=== PATIENT | female | born 1950 | race Caucasian/White ===

== ENCOUNTER → 2018-06-16 | Outpatient (REF) | payer MEDICARE ==
[2018-06-18 08:57] LABS: LDL DIRECT 180 mg/dL (0-99)
== END ==
LOC: M LAB REF 17:09
DX: E78.00 Pure hypercholesterolemia, unspecified (principal)
CPT/HCPCS: 83721

== ENCOUNTER → 2018-06-22 | Outpatient (CLI) | payer MEDICARE | LOC: M WHC 12:44 | DX: Z12.31 Encounter for screening mammogram for malignant neoplasm of breast (principal) | CPT/HCPCS: 77067 ==

== ENCOUNTER → 2019-10-19 | Outpatient (CLI) | payer MEDICARE ==
--- NOTE | 2019-10-19 14:09 | REPMRS ---
Patient History Family history of breast cancer under age 50 in maternal cousin, breast cancer under age 50 in maternal cousin, breast cancer in maternal aunt, breast cancer in maternal aunt, breast cancer in maternal aunt, breast cancer in maternal aunt. Digital Woman Screen Mammo: October 19, 2019 - Exam #: [id number] Bilateral CC and MLO view(s) were taken. Technologist: Priyanka Alexander, Technologist Prior study comparison: June 22, 2018, bilateral digital woman screen mammo performed at [facility]. June 19, 2017, digital woman screen mammo performed at [facility]. May 15, 2016, digital woman screen mammo performed at [facility]. FINDINGS: There are scattered fibroglandular densities. There has been no change in the appearance of the mammogram from the prior studies. There is a mild amount of scattered fibroglandular density which is fairly symmetric. There is no interval development of dominant mass, architectural distortion, or grouped microcalcification suggestive of malignancy. 3-D tomosynthesis shows no additional findings. Assessment: BI-RADS/ACR category 1 mammogram. Negative Mammogram. Recommendation Routine screening mammogram of both breasts in 1 year (for women over age 40). This patient's Lifetime Breast Cancer Risk is estimated at 5.5 %. This mammogram was interpreted with the aid of an FDA-approved computer-aided dectection system. Electronically Signed By: Mauri Gates MD 10/19/19 [id number]
== END ==
LOC: M WHC 12:32
PROVIDERS: ATTEND Nurse Practitioner Adult Health
DX: Z12.31 Encounter for screening mammogram for malignant neoplasm of breast (principal)

== ENCOUNTER → 2020-02-02 | Outpatient (CLI) | payer MEDICARE ==
[~2020-02-02] MED LIST: AMIT10TA PO; AZEL1SPR3 NARES; CLOB0.057 TOP; CYCL5TAB PO; FLUTISP; HYDR-3713 PO; METF-838 PO; METR1GEL4 EX; MONT10TA4 PO; OLME20TA2 PO; PRAV20TA2 PO; PROAAER10 INH; TRIA1CR80 TOP; VITAD1000T PO
--- NOTE | 2020-02-02 19:03 | ECGEPIP ---
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 Clincal correlation advised Electronically Signed on 02-02-2020 19:03:13 EDT by Abe Obregon
== END ==
LOC: M EKG 13:05
PROVIDERS: ATTEND Anesthesiology
DX: Z01.818 Encounter for other preprocedural examination (principal); R03.0 Elevated blood-pressure reading, without diagnosis of hypertension; E78.00 Pure hypercholesterolemia, unspecified

== ENCOUNTER → 2020-02-03 | Outpatient (CLI) | payer MEDICARE | LOC: M LABSMTC 11:16 | PROVIDERS: ATTEND Anesthesiology | DX: Z01.818 Encounter for other preprocedural examination (principal); Z11.59 Encounter for screening for other viral diseases | CPT/HCPCS: C9803; U0003 ==

== ENCOUNTER 2020-02-06 06:18 | Day surgery (SDC) | payer MEDICARE ==
[~2020-02-06] VITALS: Ht 162.6 cm; Wt 97.5 kg
[~2020-02-06 06:18] MED LIST changes: +LIDOCAINE 1% MDV 20ML VIAL SQ PRN
[2020-02-06] MEDS ORDERED: MIDAZOLAM INJ 2MG/2ML VIAL (J2250 PER 1MG) As Ordered ONE (06:44)
[2020-02-06] MEDS ORDERED: fentaNYL 100 MCG/2 ML INJECTION (J3010) As Ordered ONE (06:44)
[2020-02-06] MEDS ORDERED: propofoL 200 MG/20 ML VIAL As Ordered ONE ×2 (06:45→07:59)
[2020-02-06] MEDS ORDERED: LIDOCAINE 2% 100MG/5ML SDV (FOR ANES.) As Ordered ONE (06:45)
[2020-02-06] MEDS ORDERED: LR 1,000 ML IV ONE (07:00)
[2020-02-06] MEDS ORDERED: LIDOCAINE W/EPINEPHRINE 1% 20ML VIAL As Ordered ONE (07:17)
[2020-02-06] MEDS ORDERED: LR 1,000 ML IV SCH (08:30)
[2020-02-06] MEDS ORDERED: fentaNYL 100 MCG/2 ML INJECTION (J3010) IV PRN (08:30)
[2020-02-06] MEDS ORDERED: PERCOCET 5MG/325MG TAB PO PRN (08:30)
[2020-02-06 08:35] VITALS: BP 155/68
--- NOTE | 2020-02-09 14:29 | RO ---
DATE OF PROCEDURE: 02/06/2020 PREOPERATIVE DIAGNOSIS: Back lipoma. POSTOPERATIVE DIAGNOSIS: Back lipoma. PROCEDURE: Excision of back lipoma measuring 3 x 5 cm SURGEON: Dr. Shantanu Correa RISK SPECIALIST: None. ANESTHESIA: IV sedation with 15 mL of 1% Xylocaine with epinephrine local. COMPLICATIONS: None. INDICATIONS FOR PROCEDURE: The patient is a 69-year-old female with a back lipoma on her upper middle back that was very tender to palpation. Recommendation was to proceed with resection in the OR due to the large size. Risks and benefits of the procedure not limited to, but including bleeding, infection, seroma formation, damage to surrounding structures, need for further surgery external rotation in extension discussed in detail with the patient. Informed consent was obtained and the procedure was planned. PROCEDURE: The patient was brought back to operating room three. After sufficient sedation, the back was sterilely prepped and draped with Betadine. Next, we did a time out. Following that, a local was injected in the skin and subcutaneous tissue overlying the center of the palpable lipoma. Next, using 15 blade scalpel the incision was created along the center. Dissection was then created circumferentially around the lipoma using a combination of blunt and sharp dissection and using cautery and Metzenbaum scissors. Once the lipoma was completely dissected free and removed, cautery was used to help control a couple of small bleeding spots just above the muscle. The skin was then brought back together with interrupted #3-0 nylon sutures. Once that was completed, the area was cleaned, dried, was covered with 4x4s and tape, thus ending the procedure.
== END 2020-02-06 08:55 | disposition home or self-care (01) ==
LOC: M SDC 06:18
PROVIDERS: ATTEND Surgery
DX: D17.1 Benign lipomatous neoplasm of skin and subcutaneous tissue of trunk (principal); I10 Essential (primary) hypertension; E78.49 Other hyperlipidemia; E11.9 Type 2 diabetes mellitus without complications; J45.909 Unspecified asthma, uncomplicated; Z79.84 Long term (current) use of oral hypoglycemic drugs; Z79.899 Other long term (current) drug therapy; Z79.51 Long term (current) use of inhaled steroids; F41.9 Anxiety disorder, unspecified; F32.9 Major depressive disorder, single episode, unspecified
CPT/HCPCS: 11406; 88304; J2250; J3010

== ENCOUNTER → 2021-06-14 | Outpatient (CLI) | payer MEDICARE ==
[~2021-06-14] MED LIST changes: -AMIT10TA PO; +AMIT10TA7 PO; +D31000TA2 PO; -LIDOCAINE 1% MDV 20ML VIAL SQ PRN; +MONT10TA10 PO; -MONT10TA4 PO; -VITAD1000T PO
--- NOTE | 2021-06-14 15:14 | REPMRS ---
Patient History The patient states she has not had a clinical breast exam in over a year. Patient is postmenopausal. Family history of breast cancer under age 50 in maternal cousin, breast cancer under age 50 in maternal cousin, breast cancer in maternal aunt, breast cancer in maternal aunt, breast cancer in maternal aunt, breast cancer in maternal aunt. No Hormone Replacement Therapy Tomosynthesis is performed. [place] breast density is c. [facility] lifetime risk of breast cancer 4.8%. Patient states no breast complaints today. Patient has signed MRS History Sheet. Digital Woman Screen Mammo: June 14, 2021 - Exam #: [id number] Bilateral CC and MLO view(s) were taken. Technologist: Madeleine Adame Room Cleaner Prior study comparison: October 19, 2019, bilateral digital woman screen mammo performed at [facility]. June 22, 2018, bilateral digital woman screen mammo performed at [facility]. FINDINGS: The breast tissue is heterogeneously dense. This may lower the sensitivity of mammography. There has been no change in the appearance of the mammogram from the prior studies. There is a moderate amount of residual fibroglandular tissue which is fairly symmetric. There is no interval development of dominant mass, areas of architectural distortion, or clustered microcalcification typical of malignancy. Assessment: BI-RADS/ACR category 1 mammogram. Negative Mammogram. Recommendation Routine screening mammogram in 1 year (for women over age 40). This mammogram was interpreted with the aid of an FDA-approved computer-aided dectection system. Electronically Signed By: Shantanu Whipple MD 06/14/21 [id number]
== END ==
LOC: M WHC 13:21
PROVIDERS: ATTEND Nurse Practitioner Adult Health
DX: Z12.31 Encounter for screening mammogram for malignant neoplasm of breast (principal)

== ENCOUNTER → 2021-07-08 | Outpatient (CLI) | payer MEDICARE ==
--- NOTE | 2021-07-08 17:06 | REP ---
INDICATION: DENSE BREAST U/S. COMPARISON: Mammogram 06/14/2021. TECHNIQUE: Real-time sonographic evaluation of entire bilateral breasts performed. FINDINGS: In the right breast at 9 o'clock there is a simple benign cyst 4 mm in diameter, approximately 7-8 cm from the nipple. Elastography interrogation demonstrates average KP a value 8.47. There is no other evidence of cystic or solid nodule in remaining right breast. There is no cystic or solid nodule seen in the left breast. IMPRESSION: BIRADS/ACR category 2, benign. Simple benign cyst 9 o'clock right breast 4 mm. No other evidence of cystic or solid nodule. RECOMMENDATION: Recommend repeat screening exam in 1 year. <Electronically signed by Shantanu Whipple > 07/08/21 [id number]
== END ==
LOC: M WHC 11:17
PROVIDERS: ATTEND Nurse Practitioner Adult Health
DX: N60.02 Solitary cyst of left breast (principal); R92.2 Inconclusive mammogram

== ENCOUNTER → 2022-06-23 | Outpatient (CLI) | payer MEDICARE ==
[~2022-06-23] MED LIST changes: -D31000TA2 PO; -MONT10TA10 PO; +MONT10TA97 PO; +VITA100093 PO
== END ==
LOC: M WHC 14:49
PROVIDERS: ATTEND Nurse Practitioner Adult Health
DX: Z12.31 Encounter for screening mammogram for malignant neoplasm of breast (principal)

== ENCOUNTER 2023-03-17 11:50 | Emergency (ER) | payer MEDICARE, OTHER ==
[~2023-03-17] VITALS: Ht 162.6 cm; Wt 95.4 kg
[~2023-03-17 11:50] MED LIST changes: +FLUT50SP17; -FLUTISP
[2023-03-17 11:51] VITALS: TEMP 97.6
[2023-03-17] MEDS ORDERED: CLIN150C17 PO (12:10)
[2023-03-17 14:43] VITALS: BP 131/63; O2SAT 96
== END 2023-03-17 14:50 | disposition home or self-care (01) ==
LOC: M ED 11:50
DX: S40.811A Abrasion of right upper arm, initial encounter (principal); W55.01XA Bitten by cat, initial encounter; I10 Essential (primary) hypertension; E11.9 Type 2 diabetes mellitus without complications; Z79.4 Long term (current) use of insulin; Y92.009 Unspecified place in unspecified non-institutional (private) residence as the place of occurrence of the external cause; Z79.52 Long term (current) use of systemic steroids; Z79.899 Other long term (current) drug therapy

== ENCOUNTER 2023-04-28 23:52 | Emergency (ER) | payer MEDICARE, OTHER ==
[~2023-04-28] VITALS: Ht 152.4 cm; Wt 96.1 kg
[~2023-04-28 23:52] MED LIST changes: +CLIN150C17 PO
[2023-04-29] MEDS ORDERED: ORAC40CA (00:04)
[2023-04-29 02:01] VITALS: BP 158/71; TEMP 97.1; O2SAT 97
== END 2023-04-29 02:09 | disposition home or self-care (01) ==
LOC: M ED 23:52
DX: S40.861A Insect bite (nonvenomous) of right upper arm, initial encounter (principal); M51.36 Other intervertebral disc degeneration, lumbar region; J45.909 Unspecified asthma, uncomplicated; I10 Essential (primary) hypertension; E78.5 Hyperlipidemia, unspecified; E11.9 Type 2 diabetes mellitus without complications; Z88.8 Allergy status to other drugs, medicaments and biological substances; Z79.52 Long term (current) use of systemic steroids; Z79.4 Long term (current) use of insulin; Z79.899 Other long term (current) drug therapy

== ENCOUNTER → 2023-06-24 | Outpatient (CLI) | payer MEDICARE, MEDICAID ==
[~2023-06-24] MED LIST changes: +ORAC40CA
== END ==
LOC: M WHC 13:49
PROVIDERS: ATTEND Nurse Practitioner Adult Health
DX: Z12.31 Encounter for screening mammogram for malignant neoplasm of breast (principal)

== ENCOUNTER → 2023-10-23 | Outpatient (REF) | payer MEDICARE, MEDICAID ==
[~2023-10-23] MED LIST changes: -FLUT50SP17; +FLUTISP; -OLME20TA2 PO; +OLME20TA50 PO
[2023-10-23 16:52] LABS: APPEARANCE, URINE CLEAR (CLEAR); BACTERIA, URINE AUTO NEGATIVE (NEGATIVE); BILIRUBIN, URINE AUTO NEGATIVE (NEGATIVE); BLOOD, URINE BLOOD NEGATIVE (NEGATIVE); COLOR, URINE STRAW (YELLOW); GLUCOSE, URINE (UA) AUTO NEGATIVE (NEGATIVE); KETONE, URINE AUTO NEGATIVE (NEGATIVE); LEUKOCYTE ESTERASE, URINE AUTO 2+ (NEGATIVE); NITRITE, URINE AUTO NEGATIVE (NEGATIVE); PROTEIN, URINE AUTO NEGATIVE (NEGATIVE); RBC, URINE AUTO 1 /HPF (0-3); SPECIFIC GRAVITY URINE AUTO 1.002 (1.002-1.035); SQUAMOUS EPITHELIAL CELL UR AU 1 /HPF (0-6); UROBILINOGEN, URINE AUTO 0.2 mg/dL (0.0-2.0); WBC, URINE AUTO 9 /HPF (0-3)
== END ==
LOC: M LAB REF 16:11
PROVIDERS: ATTEND Physician Assistant Medical
DX: N39.0 Urinary tract infection, site not specified (principal)

== ENCOUNTER 2023-11-06 15:37 | Emergency (ER) | payer MEDICARE, MEDICAID ==
[~2023-11-06] VITALS: Ht 162.6 cm; Wt 87.9 kg
[~2023-11-06 15:37] MED LIST changes: +METH-1164 PO
[2023-11-06] MEDS: KETOROLAC 60MG 2ML VIAL IM ONE (19:36)
[2023-11-06 19:51] VITALS: BP 160/75; TEMP 97.5; O2SAT 97
== END 2023-11-06 19:55 | disposition home or self-care (01) ==
LOC: M ED 15:37
DX: M54.50 Low back pain, unspecified (principal); W19.XXXA Unspecified fall, initial encounter; E11.9 Type 2 diabetes mellitus without complications; I10 Essential (primary) hypertension; J45.909 Unspecified asthma, uncomplicated; M54.30 Sciatica, unspecified side; Z88.1 Allergy status to other antibiotic agents; Z88.8 Allergy status to other drugs, medicaments and biological substances; Z79.52 Long term (current) use of systemic steroids; Z79.4 Long term (current) use of insulin; Z79.84 Long term (current) use of oral hypoglycemic drugs; Z79.899 Other long term (current) drug therapy
CPT/HCPCS: 96372; 99283; J1885

== ENCOUNTER → 2023-11-23 | Outpatient (CLI) | payer MEDICARE, MEDICAID | LOC: M RAD 09:32 | PROVIDERS: ATTEND Nurse Practitioner Adult Health | DX: D48.5 Neoplasm of uncertain behavior of skin (principal) ==

== ENCOUNTER → 2023-12-08 | Outpatient (CLI) | payer MEDICARE, MEDICAID ==
[~2023-12-08] MED LIST changes: +LIDOCAINE 2% 100MG/5ML SDV (FOR ANES.) ONE; +MIDAZOLAM INJ 2MG/2ML VIAL As Ordered ONE; +PROHANCE 279.3MG/ML 15ML VIAL As Ordered ONE; +PROHANCE 279.3MG/ML 5ML VIAL As Ordered ONE; +propofoL 200 MG/20 ML VIAL ONE
[2023-12-08 11:50] VITALS: TEMP 97.4
[2023-12-08 13:25] VITALS: BP 125/74; O2SAT 98
== END ==
LOC: M RADPRO 11:21
PROVIDERS: ATTEND Nurse Practitioner Adult Health
DX: D43.0 Neoplasm of uncertain behavior of brain, supratentorial (principal)
CPT/HCPCS: 70553; A9576; J2250

== ENCOUNTER → 2024-03-29 | Outpatient (CLI) | payer MEDICARE, MEDICAID ==
[~2024-03-29] MED LIST changes: -LIDOCAINE 2% 100MG/5ML SDV (FOR ANES.) ONE; -MIDAZOLAM INJ 2MG/2ML VIAL As Ordered ONE; -PROHANCE 279.3MG/ML 15ML VIAL As Ordered ONE; -PROHANCE 279.3MG/ML 5ML VIAL As Ordered ONE; -propofoL 200 MG/20 ML VIAL ONE
[2024-03-29 08:40] VITALS: TEMP 97.5
[2024-03-29 10:25] VITALS: BP 151/68; O2SAT 96
== END ==
LOC: M RADPRO 08:37
PROVIDERS: ATTEND Nurse Practitioner Adult Health
DX: M54.12 Radiculopathy, cervical region (principal)

== ENCOUNTER → 2024-06-15 | Outpatient (REF) | payer OTHER, MEDICAID | LOC: M LAB REF 16:56 | PROVIDERS: ATTEND Nurse Practitioner Family | DX: R10.9 Unspecified abdominal pain (principal) ==

== ENCOUNTER → 2024-07-08 | Outpatient (CLI) | payer OTHER, MEDICAID ==
[~2024-07-08] MED LIST changes: -CYCL5TAB PO; +CYCL5TAB4 PO
== END ==
LOC: M WHC 13:16
PROVIDERS: ATTEND Nurse Practitioner Family
DX: Z12.31 Encounter for screening mammogram for malignant neoplasm of breast (principal)

== ENCOUNTER → 2024-07-20 | Outpatient (CLI) | payer OTHER, MEDICAID | LOC: M RAD 09:06 | PROVIDERS: ATTEND Nurse Practitioner Family | DX: E04.2 Nontoxic multinodular goiter (principal); R10.11 Right upper quadrant pain ==

== ENCOUNTER → 2024-07-24 | Outpatient (REF) | payer OTHER, MEDICAID ==
[2024-07-24 19:53] LABS: APPEARANCE, URINE CLOUDY (CLEAR); BACTERIA, URINE AUTO 1+ (NEGATIVE); BILIRUBIN, URINE AUTO NEGATIVE (NEGATIVE); BLOOD, URINE BLOOD 1+ (NEGATIVE); COLOR, URINE YELLOW (YELLOW); GLUCOSE, URINE (UA) AUTO NEGATIVE (NEGATIVE); KETONE, URINE AUTO NEGATIVE (NEGATIVE); LEUKOCYTE ESTERASE, URINE AUTO 3+ (NEGATIVE); MUCUS, URINE SMALL (NEGATIVE); NITRITE, URINE AUTO NEGATIVE (NEGATIVE); PROTEIN, URINE AUTO NEGATIVE (NEGATIVE); RBC, URINE AUTO 2 /HPF (0-3); SPECIFIC GRAVITY URINE AUTO 1.004 (1.002-1.035); SQUAMOUS EPITHELIAL CELL UR AU 1 /HPF (0-6); UROBILINOGEN, URINE AUTO 0.2 mg/dL (0.0-2.0); WBC, URINE AUTO TNTC /HPF (0-3)
== END ==
LOC: M LAB REF 19:14
PROVIDERS: ATTEND Physician Assistant Medical
DX: N39.0 Urinary tract infection, site not specified (principal)

== ENCOUNTER 2024-08-08 12:33 | Outpatient (RCR) | payer OTHER, MEDICAID | END 2024-08-30 | LOC: M PT 12:33 | PROVIDERS: ATTEND Nurse Practitioner Family | DX: N39.0 Urinary tract infection, site not specified (principal) ==

== ENCOUNTER → 2024-08-08 | Outpatient (REF) | payer OTHER, MEDICAID ==
[2024-08-08 18:14] LABS: APPEARANCE, URINE HAZY (CLEAR); BACTERIA, URINE AUTO NEGATIVE (NEGATIVE); BILIRUBIN, URINE AUTO NEGATIVE (NEGATIVE); BLOOD, URINE BLOOD NEGATIVE (NEGATIVE); COLOR, URINE YELLOW (YELLOW); GLUCOSE, URINE (UA) AUTO NEGATIVE (NEGATIVE); KETONE, URINE AUTO NEGATIVE (NEGATIVE); LEUKOCYTE ESTERASE, URINE AUTO 2+ (NEGATIVE); NITRITE, URINE AUTO NEGATIVE (NEGATIVE); PROTEIN, URINE AUTO NEGATIVE (NEGATIVE); RBC, URINE AUTO 2 /HPF (0-3); SPECIFIC GRAVITY URINE AUTO 1.012 (1.002-1.035); SQUAMOUS EPITHELIAL CELL UR AU 6 /HPF (0-6); UROBILINOGEN, URINE AUTO 0.2 mg/dL (0.0-2.0); WBC, URINE AUTO 9 /HPF (0-3)
== END ==
LOC: M LAB REF 16:40
PROVIDERS: ATTEND Physician Assistant Medical
DX: N39.0 Urinary tract infection, site not specified (principal)

== ENCOUNTER → 2024-08-16 | Outpatient (CLI) | payer OTHER, MEDICAID ==
[~2024-08-16] MED LIST changes: +ISOVUE-370 76% 100ML VIAL As Ordered ONE
== END ==
LOC: M RAD 14:24
PROVIDERS: ATTEND Nurse Practitioner Family
DX: C25.0 Malignant neoplasm of head of pancreas (principal); K44.9 Diaphragmatic hernia without obstruction or gangrene; K76.0 Fatty (change of) liver, not elsewhere classified; J98.11 Atelectasis
CPT/HCPCS: 74177; Q9967

== ENCOUNTER → 2024-08-19 | Outpatient (REF) | payer OTHER, MEDICAID ==
[~2024-08-19] MED LIST changes: -ISOVUE-370 76% 100ML VIAL As Ordered ONE
[2024-08-19 17:08] LABS: BASO # 0.1 10^3/uL (0.0-0.2); BASO % 0.3 % (0.0-1.0); EOS % 0.2 % (0.0-3.0); HEMATOCRIT 36.1 % (36.0-47.0); HEMOGLOBIN 11.9 g/dl (12.0-15.5); LYMPH # 3.9 10^3/uL (1.5-5.0); LYMPH % 23.6 % (24.0-44.0); MEAN CORPUSCULAR HEMOGLOBIN 30.7 pg (27.0-33.0); MONO # 1.5 10^3/uL (0.0-0.8); NEUTROPHILS # 10.9 10^3/uL (1.5-8.5); NEUTROPHILS % 66.2 % (36.0-66.0); PLATELET COUNT, AUTOMATED 239 10^3/uL (150-450); RED BLOOD COUNT 3.88 10^6/uL (4.00-5.40); WHITE BLOOD COUNT 16.5 10^3/uL (4.0-10.0)
== END ==
LOC: M LAB REF 16:24
PROVIDERS: ATTEND Nurse Practitioner Family
DX: I10 Essential (primary) hypertension (principal); E11.69 Type 2 diabetes mellitus with other specified complication; R93.3 Abnormal findings on diagnostic imaging of other parts of digestive tract; D37.8 Neoplasm of uncertain behavior of other specified digestive organs

== ENCOUNTER → 2024-09-13 | Outpatient (CLI) | payer OTHER, MEDICAID ==
[~2024-09-13] MED LIST changes: +LIDOCAINE 2% 100MG/5ML SDV (FOR ANES.) ONE; +MIDAZOLAM INJ 2MG/2ML VIAL As Ordered ONE; +propofoL 200 MG/20 ML VIAL ONE
[2024-09-13 09:25] VITALS: TEMP 97.6
[2024-09-13 10:45] VITALS: BP 137/62; O2SAT 96
== END ==
LOC: M RAD 09:17
PROVIDERS: ATTEND Psychiatry & Neurology Neurology
DX: R42 Dizziness and giddiness (principal); H53.8 Other visual disturbances
CPT/HCPCS: 70544; 70547; J2250

== ENCOUNTER → 2024-09-23 | Outpatient (CLI) | payer MEDICARE, MEDICAID ==
[~2024-09-23] MED LIST changes: -LIDOCAINE 2% 100MG/5ML SDV (FOR ANES.) ONE; -MIDAZOLAM INJ 2MG/2ML VIAL As Ordered ONE; +PROHANCE 279.3MG/ML 15ML VIAL As Ordered ONE; +PROHANCE 279.3MG/ML 5ML VIAL As Ordered ONE; -propofoL 200 MG/20 ML VIAL ONE
== END ==
LOC: M RAD 14:40
PROVIDERS: ATTEND Nurse Practitioner Family
DX: D18.03 Hemangioma of intra-abdominal structures (principal); D35.01 Benign neoplasm of right adrenal gland; K76.0 Fatty (change of) liver, not elsewhere classified; R93.3 Abnormal findings on diagnostic imaging of other parts of digestive tract
CPT/HCPCS: 74183; A9576

== ENCOUNTER → 2024-09-26 | Outpatient (CLI) | payer MEDICARE, MEDICAID ==
[~2024-09-26] MED LIST changes: -PROHANCE 279.3MG/ML 15ML VIAL As Ordered ONE; -PROHANCE 279.3MG/ML 5ML VIAL As Ordered ONE
== END ==
LOC: M PLARAD 10:12
PROVIDERS: ATTEND Nurse Practitioner Family
DX: C25.0 Malignant neoplasm of head of pancreas (principal)
CPT/HCPCS: 78815; A9552

== ENCOUNTER 2024-11-08 11:22 | Emergency (ER) | payer MEDICARE, MEDICAID ==
[~2024-11-08] VITALS: Ht 162.6 cm; Wt 91.4 kg
[2024-11-08 11:26] VITALS: BP 132/82; TEMP 97.8; O2SAT 97
== END 2024-11-08 12:34 | disposition left against medical advice (07) ==
LOC: M ED 11:22
DX: Z53.21 Procedure and treatment not carried out due to patient leaving prior to being seen by health care provider (principal)

== ENCOUNTER → 2025-04-03 | Outpatient (CLI) | payer MEDICARE, MEDICAID ==
[~2025-04-03] MED LIST changes: +AMIT10TA11 PO; -AMIT10TA7 PO; -PRAV20TA2 PO; +PRAV20TA78 PO
[2025-04-03 10:44] LABS: ESTIMATED AVERAGE GLUCOSE 146.0 MG/DL (60-110)
[2025-04-03 10:59] LABS: ALT/SGPT 22.0 U/L (7.0-40); AST/SGOT 23.0 U/L (<34); CALCIUM LEVEL 9.3 MG/DL (8.3-10.6); CARBON DIOXIDE LEVEL 26.0 MMOL/L (20-31); CHLORIDE LEVEL 105.0 MMOL/L (98-107); CHOLESTEROL LEVEL 173.0 MG/DL (<200); CHOLESTEROL RISK RATIO 3.95 (<5); CREATININE FOR GFR 0.94 MG/DL (0.55-1.30); GLOMERULAR FILTRATION RATE 62.5 (>39); LDL CHOLESTEROL 87.9 MG/DL (<100); NON-HDL-C 129.3 MG/DL; POTASSIUM SERUM 4.6 MMOL/L (3.5-5.1); SODIUM LEVEL 141.0 MMOL/L (136-145); TRIGLYCERIDES LEVEL 207.0 MG/DL (<150)
== END ==
LOC: M LAB 09:20
PROVIDERS: ATTEND Nurse Practitioner Family
DX: E11.9 Type 2 diabetes mellitus without complications (principal)